=== PATIENT | female | born 1950 | race Caucasian/White ===

== ENCOUNTER 2018-06-26 18:55 | Emergency (ER) | payer MEDICARE, OTHER, SELFPAY ==
[2018-06-26 18:56] VITALS: BP 167/76; PULSE 40; RESP 22; TEMP 36.4; O2SAT 99; BMI 37.4
--- NOTE | 2018-06-26 18:58 | ED.RN ---
CALLED FOR EKG PER RN REQUEST, PULLED OLD EKG FOR
[2018-06-26 19:02] VITALS: BP 170/82; PULSE 39; RESP 18; O2SAT 100
--- NOTE | 2018-06-26 19:11 | RAD_ITS ---
STUDY: X-RAY CHEST REASON FOR EXAM: Female, 68 years old. Chest pain TECHNIQUE: Frontal view of the chest COMPARISON: None. FINDINGS: The lungs are clear. There are no pleural effusions. There is no pneumothorax. The heart is mildly enlarged. The visualized osseous structures are within normal limits. RAD/Chest 1 View (Portable) IMPRESSION: Mild cardiomegaly. Clear lungs. Electronically Signed: Jaya York, at 19:29 EDT Tel , Service support ,
--- NOTE | 2018-06-26 19:11 | EKG12_ITS ---
Test Reason : CP Blood Pressure : / mmHG Vent. Rate : 040 BPM Atrial Rate : 096 BPM P-R Int : 000 ms QRS Dur : 090 ms QT Int : 458 ms P-R-T Axes : 061 043 022 degrees QTc Int : 373 ms Sinus rhythm with complete heart block and Junctional bradycardia Low voltage QRS Abnormal ECG Confirmed by CHRISTINE PAIZ, CHARLES ([id number]), book or script editor JUDE YANEZ ([id number]) on 06/27/2018 10:04:04 AM Referred By: RUBINA Confirmed By:CHARLES KING MD
[2018-06-26] MEDS: Aspirin 81 MG TAB.CHEW 324 MG PO (19:19)
[2018-06-26 19:20] VITALS: O2SAT 98
[2018-06-26 19:30] LABS: Absolute Lymphocyte Count 6.42 X10^3/ul (0.83-4.51); Absolute Neutrophil Count 6.6 X10^3/uL (2.0-7.7); Basophil# 0.05 X10^3/uL; Basophil% 0.3 % (0-1); Eosinophil# 0.26 X10^3/uL; Eosinophils% 1.8 % (0-5); Hematocrit 45.3 % (37-47); Hemoglobin 15.2 g/dl (12.0-15.0); Lymphocyte # 6.42 X10^3/ul (4.0); Lymphocyte % 44.1 % (19-41); Mean Corp Hgb Conc 33.6 g/gl (32-36); Mean Corpuscular Hgb 30.1 pg (27.0-32.0); Mean Corpuscular Volume 89.7 fL (81-99); Mean Platelet Vol. 11.2 fl (6.2-12.0); Monocyte% 8.2 % (0-10); Neutrophil % 45.4 % (47-70); Platelet Count 311 K/mm3 (150-450); RBC Distribution Width CV 13.1 % (11.6-14.6); RBC Distribution Width SD 42.6 fl (35.1-43.9); Red Blood Count 5.05 M/mm3 (4.2-5.4); White Blood Count 14.6 K/mm3 (4.4-11.0)
[2018-06-26 19:32] LABS: Anion Gap 11 (5-15); BUN 26 mg/dL (7-18); BUN/Creat Ratio 18.4 RATIO (10-20); Chloride 101 mmol/L (98-107); Creatinine, Serum 1.41 mg/dL (0.55-1.02); EST Glomerular Filtration Rate 39 mL/min (>60); Est Glom Filt Rate - Afr Amer 48 mL/min (>60); Glucose 127 mg/dL (74-106); Potassium 3.8 mmol/L (3.5-5.1); Sodium Level 137 mmol/L (136-145)
--- NOTE | 2018-06-26 19:37 | ED.DCSUM_ITS ---
- ER Visit Summary Date of Service: 06/26/18 Chief Complaint: Chest heaviness and shortness of breath History of Present Illness: The patient is a 68 F presenting for evaluation secondary to chest heaviness and shortness of breath. Patient reports that she has had these symptoms since yesterday. Shortness of breath associated with dyspnea on exertion. Patient reports that she has basically had a continuous heaviness in her chest that does not have any sort of exacerbating relief associated with it. She had a prior similar episode in February and actually had cardiac catheterization in outside facility. She was told that she had a 70% blockage, but this was found to be from vasospasm and she received angioplasty but no stenting. Patient does have an underlying history of hypertension and high cholesterol and hypothyroidism. She is on beta blocking medications with no recent changes in her medications. Physical Examination: Vital signs are within normal limits except for bradycardia with a rate of 39, patient is afebrile. General: Patient is well-nourished well-developed and in no acute distress. Head: Normocephalic, atraumatic Eyes: Pupils equal round and reactive bilaterally, extra occular motion intact bialterally ENT: Moist mucous membranes Neck: Supple, no lymphadenopathy, no JVD, no meningismus CVS: Heart regular bradycardia, no murmurs, rubs or gallops, radial pulses 2+ bilaterally Resp: Respirations nondistressed, lung sounds clear bilaterally Abdomen: Soft, nontender, nondistended, no palpable masses, normal bowel sounds Back: Nontender Extremities: Nontender, atraumatic, active full range of motion, no peripheral edema Skin: warm, no rashes, no petechia Neuro: Alert and oriented x 4, CN 2-12 intact, no lateralizing neurological defecits Psyc: Normal affect Test Results: EKG demonstrates third-degree AV block with narrow complex QRSs and a ventricular rate of [address] elevation or depression. Troponin found to be slightly elevated at 0.03 Emergency Department Course and Treatment: Patient presented for evaluation secondary to shortness of breath. She was found to be bradycardic, and EKG demonstrates a third-degree block. Patient was actually hypertensive, mentating normally, and I do not believe that there is any indication for transcutaneous pacing or any indication for emergent transvenous pacing. Patient's workup ended up showing she has a mildly elevated troponin but not even indeterminant so she is not currently a N STEMI. I discussed patient's case with Dr. Lauren who informed me that Dr. Ly who typically does pacemakers is out of town and the patient will require transfer. I discussed this with the [facility] transfer line, and the patient was accepted in transfer to their CCU. Disposition: Transfer Impression: 1. Third-degree heart block Critical care time 35 minutes This note was generated with [employer] dictation software. It may contain incorrect words, spelling, and punctuation that were not noted in review of the chart prior to signing ED Disposition - Plan for ED Patient: Chief Complaint: Chest Pain Referrals: Vonda Shields [Primary Care Provider] -
[2018-06-26 19:39] LABS: Differential Indicated SCAN CRITERIA MET; POSITIVE COUNT NO; POSITIVE DIFFERENTIAL YES; POSITIVE MORPHOLOGY NO
[2018-06-26 19:52] LABS: Differential Comment SCANNED
[2018-06-26 20:19] VITALS: BP 127/84; PULSE 49; RESP 16; O2SAT 100
== END 2018-06-26 20:58 | disposition short-term general hospital (02) ==
PROVIDERS: Emergency Provider Emergency Medicine; Family Provider Internal Medicine; PCP Internal Medicine
DX: I44.2 Atrioventricular block, complete (principal); R60.0 Localized edema; I10 Essential (primary) hypertension; E78.00 Pure hypercholesterolemia, unspecified; E03.9 Hypothyroidism, unspecified; Z79.82 Long term (current) use of aspirin; Z79.899 Other long term (current) drug therapy
CPT/HCPCS: 71045; 80048; 84484; 85025; 93005; 99285; A4216

== ENCOUNTER 2021-05-24 11:18 | Emergency (ER) | payer MEDICARE, OTHER, SELFPAY ==
[2021-05-24 11:19] VITALS: BP 162/112; PULSE 62; RESP 18; TEMP 35.7; O2SAT 95; BMI 36.6
--- NOTE | 2021-05-24 11:43 | EDS_ITS ---
HPI History of Present Illness Chief Complaint: Lower Extremity Injury Informant: patient Onset/Context/Timing Onset: Days Context: Gradual Onset Timing: Continuous Current Severity: Mild Maximum Severity: Mild Associated Symptoms Associated Symptoms: Negative for Parasthesia, Weakness and Loss of Funtion Narrative Narrative: 71-year-old female states on Tuesday she started having right hip and buttock pain consistent with sciatica that she has had in the past. Said she does use Aleve and Tylenol had some improvement. But she has lasting discomfort in her right lower nguyễn just above the ankle. She denies any calf pain or swelling. No recent travel, surgery or immobilization. She is never had a DVT or PE before. Prior similar symptoms: No Recent Illness/Hospitalization: No [facility] Medical History Pacemaker Home Medications Folic Acid 1 tab PO/SL DAILY 01/18/17 [History Last Taken Unknown] aspirin 81 mg PO DAILY@0800 01/18/17 [History Last Taken Unknown] calcium carbonate-vitamin D3 1 ea PO DAILY 01/18/17 [History Last Taken Unknown] furosemide 40 mg PO DAILY 01/18/17 [History Last Taken Unknown] levothyroxine 175 mcg PO DAILY 01/18/17 [History Last Taken Unknown] multivitamin [Daily Multiple Vitamin] 1 ea PO DAILY 01/18/17 [History Last Taken Unknown] sertraline [Zoloft] 150 mg PO DAILY 01/18/17 [History Last Taken Unknown] atorvastatin [Lipitor] 40 mg PO QHS 06/26/18 [History Last Taken Unknown] isosorbide mononitrate 30 mg PO DAILY 06/26/18 [History Last Taken Unknown] metoprolol succinate [Toprol Xl] 50 mg PO DAILY 06/26/18 [History Last Taken Unknown] alprazolam 0.25 mg PO PRN PRN 05/24/21 [History Last Taken Unknown] nitroglycerin 0.4 mg SUBLINGUAL X1 PRN 05/24/21 [History Last Taken Unknown] Allergy/AdvReac Type Severity Reaction Status Date / Time No Known Allergies Allergy Verified 05/24/21 11:21 Surgical History Hx of CABG Social History Smoking Status: Never smoker ROS ROS ED ROS Narrative Denies. Review of Systems ROS Unobtainable: Denies due to encephalopathy Constitutional Constitutional ED: Denies fever(s) Eyes Eyes: Denies change in vision ENT ENT ED: Denies ear pain or sore throat Cardiovascular Cardiovascular: Denies chest pain Respiratory/Chest Respiratory/Chest: Denies cough or dyspnea Gastrointestinal Gastrointestinal: Denies abdominal pain, diarrhea, nausea or vomiting Genitourinary Genitourinary ED: Denies dysuria Musculoskeletal Musculoskeletal: Reports back pain; Denies myalgias Integumentary Denies rash Neurologic Neurologic: Denies headache(s) Psychiatric Psychiatric: Denies depression Endocrine Endocrinology: Denies polyuria Hematologic/Lymphatic Hematologic/Lymphatic: Denies easy bruising Allergic/Immunologic Allergic/Immunologic ED: Denies urticaria EXAM Physical Exam Narrative Exam Narrative: 71-year-old female no acute distress. Lungs are clear. Heart regular rate and rhythm. Abdomen soft nontender. Spine nontender. Right SI joint mild tenderness. Negative straight leg raise. Lower extremities dorsi plantar flexion intact. Mild discomfort in the right lateral leg. There is no redness or swelling. No bony deformity. No calf pain or swelling. No cords. No edema. Both lower extremities are neurovascular intact. Neurologic exam normal. Const Vital Signs: 05/24/21 11:19 Temperature 96.3 F L Temperature Source Temporal Pulse Rate 62 Respiratory Rate 18 Blood Pressure 162/112 H Blood Pressure Mean 128 Pulse Ox 95 Oxygen Delivery Method Room Air Positive well nourished and well developed; Negative for unkempt General Appearance ED: well developed and NAD; Negative for unkempt HEENT Reports moist mucous membranes normocephalic and atraumatic; Negative for trauma or tenderness Eyes PERRL Neck full ROM and supple Thyroid: Negative for tender Chest Wall inspection of chest normal and palpation of chest normal Resp normal respiratory effort, no retractions and clear to auscultation bilaterally Auscultation: Negative for rales, rhonchi or wheezes Cardio regular rate, regular rhythm, S1 normal heart sound, S2 normal heart sound and no murmurs GI non-tender, non-distended and no masses Auscultation: normoactive bowel sounds Palpation: soft; Negative for tender or guarding Back/Spine no CVA tenderness Back/Spine Narrative: Right SI tenderness. Negative straight leg raise. Extremity normal to inspection Extremity Narrative: Mild right lower extremity tenderness. No edema or cords. No calf tenderness. This is anterior lateral just above the lateral malleolus. There is no redness or warmth. No swelling. Neuro oriented x3 and moves all extremities Sensorium / Orientation: alert, oriented to person, oriented to place and oriented to time; Negative for orientation impaired, lethargic or stuporous Psych mental status grossly normal Appearance: Negative for unkempt Skin no wounds Lesions: no lesions Rashes: no rashes Trauma: Negative for abrasion or laceration MDM MDM MDM Narrative Medical decision making narrative: Patient with acute sciatica on the right and mild discomfort in her right lower leg. Clinically this does not appear to be a DVT. She has no leg pain or swelling. There is no calf discomfort. She has no risk factors. She will continue conservative treatment with anti-inflammatories and ice and follow-up if not improving. She has not had an ultrasound this time. She and I discussed that she is comfortable with the plan. Discharge Plan Triage Chief Complaint: Lower Extremity Injury ED Provider: Jack Lo Dx/Rx/DC Orders Clinical Impression: Musculoskeletal leg pain, Sciatica Instructions: ED Sciatica Prescriptions: No Action multivitamin [Daily Multiple] 1 EACH tablet 1 ea PO DAILY RF: 0 furosemide 40 MG tablet 40 mg PO DAILY RF: 0 sertraline [Zoloft] 100 MG tablet 150 mg PO DAILY RF: 0 levothyroxine 100 MCG tablet 175 mcg PO DAILY RF: 0 aspirin 81 MG tablet,chewable 81 mg PO DAILY@0800 RF: 0 calcium carbonate-vitamin D3 1 EACH tablet 1 ea PO DAILY RF: 0 Folic Acid 1 tab PO/SL DAILY RF: 0 atorvastatin [Lipitor] 20 MG tablet 40 mg PO QHS RF: 0 isosorbide mononitrate 30 MG tablet extended release 24 hr 30 mg PO DAILY RF: 0 metoprolol succinate [Toprol XL] 25 MG tablet extended release 24 hr 50 mg PO DAILY RF: 0 alprazolam 0.25 mg tablet 0.25 mg PO PRN PRN (Reason: Anxiety) RF: 0 nitroglycerin 0.4 mg tablet, sublingual 0.4 mg sublingual X1 PRN (Reason: Chest Pain) RF: 0 Primary Care Provider: Vonda Shields Referrals: Vonda Shields MD [Primary Care Provider] - 1 Week if not improving Activity Restrictions/Additional Instructions: Please read this tenderness does not seem to be a blood clot also noticed a DVT or deep venous thrombosis. Ice to the area. Motrin or Aleve for pain and inflammation. Also ice to your right lower back for the sciatica. Follow-up 1 week if not improving or return if a lot worse. Disposition Disposition: Home, Self Care
== END 2021-05-24 12:04 | disposition home or self-care (01) ==
LOC: ED 11:58
PROVIDERS: Emergency Provider Emergency Medicine; PCP Internal Medicine
DX: M54.31 Sciatica, right side (principal); M79.604 Pain in right leg; Z79.82 Long term (current) use of aspirin; Z79.890 Hormone replacement therapy; Z79.899 Other long term (current) drug therapy; Z95.0 Presence of cardiac pacemaker; Z95.1 Presence of aortocoronary bypass graft
CPT/HCPCS: 99282

== ENCOUNTER → 2023-08-08 | Outpatient (CLI) | payer MEDICARE, OTHER, SELFPAY ==
--- NOTE | 2023-08-08 | IMM_PTH ---
PATIENT: EM COOMBS LOC: [facility] U#:[id number] AGE/SX: 73/F ROOM: RE08/08/[address]: Dr. Julian Dietrich MD : 1950 BED: DIS: 08/08/2023 SPEC #: [id number] RECD: 08/09/23 11:17 STATUS: ZOILA RELatesha #: [id number] WERO: 08/08/23 00:[address]: Julian Dietrich DEPT: IMMUNOHISTOCHEMISTRY RECD BY: Alena Rivera ENTERED: 08/09/23 11:18 SP TYPE: IMMUNO OTHR DR: Dr. Vonda Shields MD Tissues: Left breast, NOS Procedures: CALPONIN-1 (add) HER2 JAKOB (add) KI-67 (add) MAMM (add) MI (add) IN SITU HYBRIDIZATION Pankeratin (add) GATA3 (add) P40 (add) ER (initial) PHYSICIAN & [address] [id number] SPECIMEN INFORMATION: Tissue Source: Left breast biopsy Clinical Info: Left breast mass Specimen Number: [id number] CPT code: 82554, 97108 x5, 96188 x3, 42006 x2 METHODOLOGY: Deparaffinized sections of prefer/formalin-fixed tissue or PAP/DQ stained slides are incubated with monoclonal/polyclonal antibodies/oligonucleotide probes. Localization is made via biotin free immunoperoxidase method. Appropriate controls are performed and reacted as expected. Results on target cell population are indicated in the following table: RESULTS: ANTIBODY / CLONE RESULT AE1-3 (AE1/AE3/PCK26) positive GATA3 (L50-823) positive Mammaglobin (31A5) negative Ki-67 (30-9) positive (5%) Calponin-1 (EK439C) negative P40 (BC28) negative E-Cad (ECH-6) positive MORPHOMETRIC ANALYSIS ER (clone 6F11) (0%) MI (clone 16/1E2) (0%) Her-2Neu (clone CB11) 1 - 2% The prognostic test for HER2 is performed on formalin-fixed paraffin embedded tissue. A 3+ (positive) staining pattern is defined as intense, homogeneous, complete, circumferential membranous staining in >10% of contiguous tumor cells. A similar weak (2+) staining pattern is interpreted as equivocal. SHANE follow-up testing is recommended for all equivocal cases. Positivity/negativity for ER/MI is reported if > or < 1% of the tumor cells are immuno- reactive, respectively. The ASCO/CAP criteria is used for scoring. Reference: Journal of Clinical Oncology, 2013; 31:7592-4911 & 2010; 16:0470-3100. Ischemic time: Less than one hour. Duration of fixation: 11.5 Hrs; Sample Adequate: Yes. These assays have not been validated on decalcified tissues. Results should be interpreted with caution given the likelihood of false negativity on decalcified specimens or fixation greater than 72 hours. Alternative testing methods (FISH/dualISH for Her2; gene expression for ER) are recommended, if applicable. Please notify the laboratory if additional testing is required. These tests were developed and their performance characteristics determined by [facility]. They may not have been cleared or approved by the U.S. Food and Drug Administration. The FDA has determined that such clearance or approval is not necessary. The above immunohistochemical/dualISH markers are ordered and reviewed by the Pathologist. INTERPRETATION: Left breast, ultrasound-guided core biopsy: Dysplastic ductal epithelium. Negative for estrogen receptors (unfavorable prognostic indicator). Negative for progesterone receptors (unfavorable prognostic indicator). Equivocal for overexpression of [id number]. See comment. Comment: This may represent high grade ductal carcinoma in situ or invasive ductal carcinoma. MARK/laurence 08/11/2023 ADDENDUM ADDENDUM ADDENDUM ADDENDUM ADDENDUM ADDENDUM ADDENDUM ADDENDUM ADDENDUM ADDENDUM ADDENDUM ADDENDUM ADDENDUM ADDENDUM ADDENDUM ADDENDUM ADDENDUM ADDENDUM ADDENDUM ADDENDUM ADDENDUM ADDENDUM 08/17/2023 13:55 ADDENDUM 08/17/2023 13:55 ADDENDUM 08/17/2023 13:55 ADDENDUM 08/17/2023 13:55 ADDENDUM 08/17/2023 13:55 IN SITU HYBRIDIZATION (SHANE) FOR HER2 Interpretation: Not Amplified HER2 : CEP-17 Ratio: 1.1 Average HER2 Signal: 2.05 Average CEP-17 Signal: 1.85 Number of Tumor Cells Scanned: 50 Interpretative Information: The INFORM HER2 Dual SHANE DNA Probe Cocktail assay is performed on formalin-fixed paraffin embedded tissue and determines HER2 gene status by detecting HER2 copies via silver in situ hybridization (SISH) and Chromosome 17 copies via chromogenic red in situ hybridization on tumor cells. A minimum of 20 cells representing > 10% of contiguous and homogeneous invasive tumor cells were analyzed. HER2 gene status is classified as Non-amplified (HER2/Chr17 ratio < 2.0) or Amplified (HER2/Chr17 ratio greater than or equal to 2.0). If the resulting HER2/Chr17 ratio falls within 1.8 - 2.2 (Borderline), retesting by FISH is recommended. Reference: Victoria AC, Ashley MELGAR, Myrtle DG, et al: Recommendations for Human Epidermal Growth Factor Receptor 2 Testing in Breast Cancer: [place] Society of Clinical On[employer] / College of [place] [employer] Clinical Practice Guideline Update. J Clin Oncol 31:7788-3165, 2013. AM:moni 08/17/2023
--- NOTE | 2023-08-08 07:15 | BRBX_PTH ---
PATIENT: EM COOMBS LOC: [facility] U#:[id number] AGE/SX: 73/F ROOM: RE08/08/[address]: Dr. Julian Dietrich MD : 1950 BED: DIS: 08/08/2023 SPEC #: [id number] RECD: 08/08/23 08:01 STATUS: ZOILA NI #: [id number] WERO: 08/08/23 07:[address]: Julian Dietrich DEPT: SURGICAL PATHOLOGY RECD BY: Dina Lima ENTERED: 08/08/23 08:22 SP TYPE: BREAST BX OTHR DR: Dr. Vonda Shields MD Tissues: Left breast, NOS Procedures: Surgery Specimen Level IV HEADER OPERATION: Ultrasound guided left breast biopsy PRE-OP DIAGNOSIS: Left breast mass TISSUE SUBMITTED: Left breast tissue MICROSCOPIC DIAGNOSIS Left breast mass, core biopsy: Rare fragments of neoplastic ductal epithelium. See comment. AM:moni 08/09/2023 COMMENT The majority of the tissue consists of necrotic cellular debris. The differential diagnosis includes invasive ductal carcinoma and high-grade ductal carcinoma in situ. Clinical correlation is suggested. Immunohistochemistry ([id number]) supports the above diagnosis. Case has been reviewed in consultation with Dr. Louise who concurs with the above diagnosis. RIKI:RYDER MICROSCOPIC DESCRIPTION Slides are reviewed. GROSS DESCRIPTION Received in fixative is one container labeled with the patient's name and designated left breast. The specimen consists of multiple elongated fragments of patrick-yellow fibroadipose tissue that in aggregate measure 2.0 x 0.3 x 0.1 cm. The entire specimen is submitted in one cassette. / SJ:moni 08/08/2023 TC:0 Ischemic Time: 1 minute Fixation Time: 11.5 hours CPT: 48426 ADDENDUM ADDENDUM ADDENDUM ADDENDUM ADDENDUM ADDENDUM ADDENDUM ADDENDUM ADDENDUM ADDENDUM 10/17/2023 08:44 ADDENDUM 10/17/2023 08:44 ADDENDUM 10/17/2023 08:44 ADDENDUM 10/17/2023 08:44 ADDENDUM 10/17/2023 08:44 This addendum is added to incorporate an outside pathology consultation report. The case was examined at [facility] (#[id number]) and the following diagnosis was rendered. Left breast mass, core biopsy: Scant atypical cells with apocrine features. Please see complete above mentioned consultation report in EMR
--- NOTE | 2023-08-08 07:48 | BI_ITS ---
MAMMOGRAPHY - UNILATERAL DIAGNOSTIC: LEFT BREAST REASON FOR EXAM: Female, 73 years old. Clip placement following biopsy. PERTINENT HISTORY: Left breast nodule. TECHNIQUE: Mediolateral oblique and craniocaudad views of the left breast were obtained following the biopsy. CAD: Full Field Digital Mammography with Computer Added Detection was performed. COMPARISON: Comparison is made with prior outside examination dated July 29, 2023. FINDINGS: Breast Composition: The breasts are heterogeneously dense, which may obscure small masses. A tissue clip marker is seen in the central depth retroareolar region of the breast. No other significant abnormalities are identified. BI/DIAG MAMM W/CAD, UNILAT IMPRESSION: Postbiopsy clip is seen in the central depth retroareolar region of the left breast. ASSESSMENT CATEGORY: BIRADS Category 2: Benign. A letter regarding these results will be sent to the patient by the facility within 30 days. Approximately 10% of breast cancers are not detected by mammography. A normal mammogram should not delay biopsy of a clinically suspicious abnormality. Electronically Signed: Mario Azul MD at 8:50 EST ,
== END | disposition home or self-care (01) ==
PROVIDERS: PCP Internal Medicine; Referring Provider Surgery; Visit Provider Surgery
DX: R92.8 Other abnormal and inconclusive findings on diagnostic imaging of breast (principal); N63.20 Unspecified lump in the left breast, unspecified quadrant
CPT/HCPCS: 77065; 88305; 88341; 88342; 88368

== ENCOUNTER → 2023-08-24 | Outpatient (CLI) | payer MEDICARE, OTHER, SELFPAY ==
--- NOTE | 2023-08-24 11:02 | MRI_ITS ---
STUDY: BILATERAL BREAST MR WITHOUT AND WITH CONTRAST REASON FOR EXAM: Female, 73 years old. Left invasive ductal carcinoma in situ. TECHNIQUE: Multi-sequence multi-echo imaging of both breasts was performed with a dedicated breast coil. T1-weighted and T2-weighted images were performed before the administration of contrast. T1-weighted images were also performed after the intravenous administration of 20 mL of Clariscan contrast. COMPARISON: Unilateral left diagnostic mammogram and left breast ultrasound dated August 08, 2023, left breast ultrasound dated August 03, 2023, bilateral screening mammogram dated July 29, 2023. FINDINGS: RIGHT BREAST: Scattered fibroglandular density with marked background enhancement bilaterally, left greater than right. No focal abnormal enhancing masses or areas of non-mass enhancement in the right breast. LEFT BREAST: Scattered fibroglandular density with marked background enhancement. Focal enhancing irregular mass at the 12:00 position with tissue clip marker artifact within it corresponding to the index lesion noted on the ultrasound studies. Substantial nodular and linear non-mass enhancement posterior and superior to the tissue clip marker measuring approximately 1.6 cm x 2.3 cm best seen on MR series #[id number] images 129-139. Anterior to the index mass there is linear non-mass and nodular enhancement in the retroareolar region of the breast anterior to the tissue clip artifact measuring 3 cm x 1.9 cm and best seen on MR series #[id number] and images 147-154. No abnormal or enlarged lymph nodes. No abnormality in the visualized regions of the chest or liver. MRI/Breast Bilateral W/O and W IMPRESSION: Enhancing index lesion at the 12:00 position of the left breast. Nodular and linear non-mass enhancement posterior and superior to the index lesion and anterior to the index lesion extending into the retroareolar region. These two areas of enhancement may represent tumor involvement, given their enhancement characteristics. Right breast shows marked background enhancement with no abnormal enhancing areas. See discussion above. CATEGORY: BIRADS Category 6: Known Biopsy-Proven Malignancy - Appropriate Action Should Be Taken. A letter regarding these results will be sent to the patient by the facility within 30 days. Electronically Signed: Kamran Edwards MD at 13:29 EST ,
[2023-08-24 11:44] VITALS: BP 164/83; PULSE 60; RESP 18; O2SAT 95
[2023-08-24 11:55] LABS: CREATININE FINGERSTICK < 1.0 mg/dL (0.55-1.02); EGFR FINGERSTICK > 60.0000 mL/min (>60)
[2023-08-24 11:58] VITALS: BP 166/91; PULSE 80; O2SAT 98
[2023-08-24 12:11] VITALS: BP 170/98; PULSE 80; O2SAT 94
[2023-08-24 12:24] VITALS: BP 173/103; PULSE 80; O2SAT 93
[2023-08-24 12:39] VITALS: BP 150/87; PULSE 80; RESP 16; O2SAT 96
== END | disposition home or self-care (01) ==
LOC: MRI 10:42
PROVIDERS: PCP Internal Medicine; Referring Provider Surgery; Visit Provider Surgery
DX: R92.30 Dense breasts, unspecified (principal); N63.25 Unspecified lump in the left breast, overlapping quadrants
CPT/HCPCS: 77049; A9575; C8908

== ENCOUNTER → 2023-09-01 | Outpatient (CLI) | payer MEDICARE, OTHER, SELFPAY ==
--- NOTE | 2023-09-01 08:30 | US_ITS ---
STUDY: ULTRASOUND BREAST - LEFT REASON FOR EXAM: Female, 73 years old. Abnormal breast MRI. TECHNIQUE: Axial and longitudinal images of the LEFT breast were performed with a high resolution ultrasound transducer. # OF IMAGES: 49 COMPARISON: Breast MRI 08/24/2023 FINDINGS: LEFT Breast: Heterogeneous background echotexture. At 12:00, 2 cm from nipple, ultrasound confirms a 9 mm oval parallel circumscribed hypoechoic mass with an echogenic focus consistent with a marking clip which has been biopsied. At 2:00, 3 cm nipple, ultrasound confirms an 8 mm oval parallel microlobulated hypoechoic mass with no posterior features are not consistent with a cyst corresponding to the mass seen on MRI and ultrasound guided vacuum assisted core biopsy is recommended.: US/Breast Limited Unilateral IMPRESSION: Ultrasound confirms an 8 mm oval hypoechoic mass corresponding to an enhancing mass or MRI and ultrasound guided vacuum assisted core biopsy is recommended. ASSESSMENT CATEGORY: BIRADS Category 4: Suspicious. Biopsy Should Be Considered. A letter regarding these results will be sent to the patient by the facility within 30 days. Electronically Signed: Naldo Colunga MD at 9:45 EST ,
== END | disposition home or self-care (01) ==
LOC: OPUS 08:29
PROVIDERS: PCP Internal Medicine; Referring Provider Surgery; Visit Provider Surgery
DX: N63.25 Unspecified lump in the left breast, overlapping quadrants (principal); R92.8 Other abnormal and inconclusive findings on diagnostic imaging of breast
CPT/HCPCS: 76642

== ENCOUNTER → 2023-09-06 | Outpatient (CLI) | payer MEDICARE, OTHER, SELFPAY ==
--- NOTE | 2023-09-06 12:40 | BRBX_PTH ---
PATHOLOGY RESULTS PATIENT: EM COOMBS LOC: [facility] U#:[id number] AGE/SX: 73/F ROOM: RE09/06/[address]: Dr. Julian Dietrich MD : 1950 BED: DIS: 09/06/2023 SPEC #: [id number] RECD: 09/06/23 13:21 STATUS: ZOILA NI #: [id number] WERO: 09/06/23 12:[address]: Julian Dietrich DEPT: SURGICAL PATHOLOGY RECD BY: Alena Rivera ENTERED: 09/06/23 13:21 SP TYPE: BREAST BX OTHR DR: Dr. 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 Negative for malignancy. See comment. SJ:moni 09/07/2023 COMMENT Correlation with clinical, radiologic findings and appropriate follow up are necessary. Case has been reviewed in consultation with Dr. Jerome who concurs with the above diagnosis. IDC:AM MICROSCOPIC DESCRIPTION Slides are reviewed. GROSS DESCRIPTION Received in fixative is one container labeled with the patient's name and designated left breast. The specimen consists of multiple elongated fragments of ptarick-yellow fibroadipose tissue that in aggregate measure 1.5 x 0.3 x 0.1 cm. The entire specimen is submitted in one cassette. / RYDER:moni 09/06/2023 TC:5 Ischemic Time: 1 minute Fixation Time: 6.5 hours CPT: 24238 ADDENDUM ADDENDUM 10/17/2023 08:47 This addendum is added to incorporate an outside pathology consultation report. The case was examined at [facility] (#[id number]) and the following diagnosis was rendered. 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 Please see complete above mentioned consultation report in EMR
== END | disposition home or self-care (01) ==
PROVIDERS: PCP Internal Medicine; Referring Provider Surgery; Visit Provider Surgery
DX: D24.2 Benign neoplasm of left breast (principal); N60.92 Unspecified benign mammary dysplasia of left breast
CPT/HCPCS: 88305